=== PATIENT | male | born 1960 | race Caucasian/White ===

== ENCOUNTER 2017-12-28 02:40 | Emergency (ER) | payer OTHER ==
[~2017-12-28] VITALS: Ht 172.7 cm; Wt 72.6 kg
[~2017-12-28 02:40] MED LIST: COGENTIN 2 MG; ENALAPRIL MALEA10 MG NGT; PROLIXIN10 MG PO; VALIUM; VERAPAMIL
[2017-12-28] MEDS ORDERED: DOLOGESIC-DF 51 EACH PO (04:22)
[2017-12-28] MEDS ORDERED: LEVAQUIN500 MG PO (04:22)
== END 2017-12-28 05:43 | disposition home or self-care (01) ==
LOC: ER 02:40
DX: S90.32XA Contusion of left foot, initial encounter (principal); W22.8XXA Striking against or struck by other objects, initial encounter; Y93.89 Activity, other specified; Y92.098 Other place in other non-institutional residence as the place of occurrence of the external cause; Y99.8 Other external cause status

== ENCOUNTER → 2018-03-03 | Emergency (ER) | payer OTHER ==
[~2018-03-03] VITALS: Ht 172.7 cm; Wt 60.8 kg
[~2018-03-03] MED LIST changes: +DOLOGESIC-DF 51 EACH PO; +LEVAQUIN500 MG PO
== END | disposition home or self-care (01) ==
LOC: ER 21:44
DX: H10.89 Other conjunctivitis (principal)

== ENCOUNTER → 2018-03-06 | Emergency (ER) | payer OTHER | END | disposition left against medical advice (07) | LOC: ER 07:55 | DX: Z53.20 Procedure and treatment not carried out because of patient's decision for unspecified reasons (principal) ==